=== PATIENT | female | born 1975 | race Caucasian/White ===

== ENCOUNTER 2022-03-22 09:10 | Day surgery (SDC) | payer OTHER ==
[2022-03-19 15:33] VITALS: BMI 22.4
[2022-03-22] MEDS ORDERED: PROPOFOL 40 ML ONE (09:19)
[2022-03-22] MEDS ORDERED: LIDOCAINE HCL/PF 2% SDV 5ML VIAL ONE (09:19)
[2022-03-22 10:46] VITALS: PULSE 71; RESP 18; TEMP 98.1
[2022-03-22 10:59] VITALS: BP 109/65
== END 2022-03-22 12:45 | disposition home or self-care (01) ==
LOC: FASU-ENDO 09:10
PROVIDERS: ATTEND Internal Medicine Gastroenterology
PROC: 0DJD8ZZ Inspection of Lower Intestinal Tract, Via Natural or Artificial Opening Endoscopic (ICD-10-PCS; principal; 2022-03-22 10:06)
DX: Z12.11 Encounter for screening for malignant neoplasm of colon (principal); K64.1 Second degree hemorrhoids
CPT/HCPCS: 81025